=== PATIENT | female | born 1960 | race Caucasian/White ===

== ENCOUNTER 2022-01-31 06:31 | Day surgery (SDC) | payer BC, OTHER ==
[2022-01-31] MEDS ORDERED: Lactated Ringers 1,000 ML IV SCH (07:00)
[2022-01-31] MEDS ORDERED: fentaNYL 100 MCG/2 ML SDV ONE (07:20)
[2022-01-31] MEDS ORDERED: Midazolam 1 MG/ML 2 ML SDV ONE (07:20)
[2022-01-31] MEDS ORDERED: Propofol 200 MG/20 ML SDV ONE (07:20)
== END 2022-01-31 09:40 | disposition home or self-care (01) ==
LOC: JP.SDS 06:31
PROVIDERS: ATTEND Family Medicine
DX: Z12.11 Encounter for screening for malignant neoplasm of colon (principal); D12.2 Benign neoplasm of ascending colon; K64.8 Other hemorrhoids; K64.4 Residual hemorrhoidal skin tags; I12.9 Hypertensive chronic kidney disease with stage 1 through stage 4 chronic kidney disease, or unspecified chronic kidney disease; E78.5 Hyperlipidemia, unspecified; N18.9 Chronic kidney disease, unspecified; E66.9 Obesity, unspecified; E03.9 Hypothyroidism, unspecified; K21.9 Gastro-esophageal reflux disease without esophagitis; Z91.030 Bee allergy status; Z98.890 Other specified postprocedural states; Z68.34 Body mass index [BMI] 34.0-34.9, adult
CPT/HCPCS: 45380; J2250; J2704; J3010; J7120; 88305